=== PATIENT | female | born 1960 | race African-American/Black ===

== ENCOUNTER 2022-01-01 20:21 | Emergency (ER) | payer OTHER ==
[~2022-01-01] VITALS: Ht 160 cm; Wt 67.1 kg
[2022-01-01] MEDS ORDERED: EZETIMIBE-SIMV1 EAC1 PO (20:47)
[2022-01-01] MEDS ORDERED: METOPROLOL SUCC50 MG PO (20:47)
== END 2022-01-01 22:03 | disposition home or self-care (01) ==
LOC: ER 20:21
DX: J06.9 Acute upper respiratory infection, unspecified (principal); R50.9 Fever, unspecified